=== PATIENT | female | born 1985 | race Caucasian/White ===

== ENCOUNTER 2018-07-17 18:49 | Emergency (ER) | payer MEDICAID ==
[~2018-07-17] VITALS: Ht 165.1 cm; Wt 99.4 kg
[~2018-07-17 18:49] MED LIST: ALBU8.5H5 INH; CITA20TA9 PO; HYDR12.58 PO; LEVO88TA2 PO
[2018-07-17 18:52] VITALS: BP 156/112
== END 2018-07-17 20:02 | disposition home or self-care (01) ==
LOC: ED 20:00
DX: G56.01 Carpal tunnel syndrome, right upper limb (principal); G62.9 Polyneuropathy, unspecified; I10 Essential (primary) hypertension; F32.9 Major depressive disorder, single episode, unspecified; F17.200 Nicotine dependence, unspecified, uncomplicated
CPT/HCPCS: 29260; 99284

== ENCOUNTER 2019-11-22 09:04 | Emergency (ER) | payer MEDICAID ==
[~2019-11-22] VITALS: Ht 165.1 cm; Wt 111.0 kg
[~2019-11-22 09:04] MED LIST changes: -HYDR12.58 PO; +HYDROCHLOROTH12.5 MG PO
[2019-11-22 09:18] VITALS: BP 151/108
== END 2019-11-22 10:20 | disposition home or self-care (01) ==
LOC: ED 10:06
DX: G89.11 Acute pain due to trauma (principal); M25.532 Pain in left wrist; I10 Essential (primary) hypertension; Z90.49 Acquired absence of other specified parts of digestive tract
CPT/HCPCS: 29125; 99283

== ENCOUNTER 2020-01-22 08:11 | Emergency (ER) | payer MEDICAID ==
[~2020-01-22] VITALS: Ht 165.1 cm; Wt 112.0 kg
--- NOTE | 2020-01-22 08:26 | NUR ---
PT PRESENTED TO ED D/T LEFT KNEE PAIN. PT STATES UNABLE TO AMBULATE ON LEFT LEG DUE TO KNEE PAIN.
--- NOTE | 2020-01-22 08:27 | NUR ---
MED RESIDENT AT BEDSIDE EVALUATING PT.
[2020-01-22] MEDS ORDERED: ACETAMINOPHEN 500 MG TABLET ONE (08:39)
--- NOTE | 2020-01-22 08:41 | NUR ---
MEDICATION ADMINSITERED FOR 7.5/10 LEFT KNEE PAIN. PENDING KNEE XR.
--- NOTE | 2020-01-22 08:54 | NUR ---
PT IN XR.
[2020-01-22] MEDS ORDERED: ACETAMINOPHEN 500 MG TABLET PO ONE (09:00)
[2020-01-22 09:47] VITALS: BP 133/94
--- NOTE | 2020-01-22 09:47 | NUR ---
PT RESTING COMFORTABLY ON [place] WATCHING TV. UP FOR RECHECK BY MD. NO NEEDS AT THIS TIME. RN TO CONTINUE TO MONITOR.
--- NOTE | 2020-01-22 10:21 | NUR ---
LUIS F WRAP APPLIED TO LEFT KNEE PER MD ORDERS.
--- NOTE | 2020-01-22 10:25 | NUR ---
PT DC HOME IN A STABLE CONDITION. DC INSTRUCTIONS DISCUSSED WITH PT. PT VERBALIZED UNDERSTANDING. NO FURTHER QUESTIONS OR CONCERNS EXPRESSED AT THAT TIME. PT AMBULTED TO DC DESK WITH A STEADY GAIT.
== END 2020-01-22 10:27 | disposition home or self-care (01) ==
LOC: ED 09:11
DX: M25.862 Other specified joint disorders, left knee (principal); M25.562 Pain in left knee
CPT/HCPCS: 99283

== ENCOUNTER 2020-03-04 09:24 | Day surgery (SDC) | payer MEDICAID ==
[~2020-03-04] VITALS: Ht 165.1 cm; Wt 112.0 kg
[2020-03-04 10:09] VITALS: BP 155/103
[2020-03-04 10:14] LABS: HCG UR SG 1.026 (1.003-1.030)
[2020-03-04] MEDS ORDERED: LACTATED RINGERS 1,000 ML IV SCH (10:14)
[2020-03-04] MEDS ORDERED: CHLORHEXIDINE 15 ML UDC MM ONE (10:30)
[2020-03-04] MEDS ORDERED: BUPIVACAINE/PF-EPI 0.25% 1:200K ONE (10:40)
[2020-03-04] MEDS ORDERED: morphine SULFATE/PF 1 MG/ML, 10ML ONE (10:41)
[2020-03-04] MEDS ORDERED: EPINEPHRINE 1 MG/ML, 1ML ONE (10:41)
[2020-03-04] MEDS ORDERED: LIDOCAINE 1%, 20ML ONE (10:41)
[2020-03-04] MEDS ORDERED: PROPOFOL 10 MG/ML, 20ML ONE ×2 (10:55→11:55)
[2020-03-04] MEDS ORDERED: ROCURONIUM 10MG/ML,5ML ONE (10:56)
[2020-03-04] MEDS ORDERED: SUCCINYLCHOLINE 20 MG/ML, 10ML ONE (10:56)
[2020-03-04] MEDS ORDERED: CEFAZOLIN 1,000 MG ONE (10:56)
[2020-03-04] MEDS ORDERED: PHENYLEPHRINE 10 MG/ML ONE (10:57)
[2020-03-04] MEDS ORDERED: MIDAZOLAM 1 MG/ML, 2ML ONE (11:11)
[2020-03-04] MEDS ORDERED: FENTANYL PF 100 MCG/2ML ONE ×4 (11:12→12:43)
[2020-03-04] MEDS ORDERED: SUGAMMADEX 200 MG/2 ML IVPush ONE ×2 (11:59)
[2020-03-04] MEDS ORDERED: OXYcodone 5 MG/5 ML ORAL.SOL UDC ONE (12:13)
[2020-03-04] MEDS ORDERED: ACETAMINOPHEN 650 MG/20.3 ML UDC ONE (12:13)
[2020-03-04] MEDS: FENTANYL PF 100 MCG/2ML IV PRN ×2 (12:15→12:25)
[2020-03-04] MEDS ORDERED: HYDROmorphone 1 MG/ML, 1ML INJ ONE (12:17)
[2020-03-04] MEDS: HYDROmorphone 1 MG/ML, 1ML INJ IVPush PRN ×2 (12:22→12:30)
[2020-03-04] MEDS ORDERED: morphine SULFATE 10 MG/ML, 1ML IVPush PRN (12:30)
[2020-03-04] MEDS ORDERED: HYDROcodone/APAP 7.5-325MG/15ML UDC PO PRN (12:30)
[2020-03-04] MEDS ORDERED: OXYcodone 5 MG/5 ML ORAL.SOL UDC PO PRN (12:30)
[2020-03-04] MEDS ORDERED: ACETAMINOPHEN 325 MG TABLET PO PRN (12:30)
[2020-03-04] MEDS ORDERED: ONDANSETRON 2MG/ML, 2ML ONE (12:31)
[2020-03-04] MEDS ORDERED: PROMETHAZINE 25 MG/ML, 1ML ONE (12:31)
[2020-03-04] MEDS ORDERED: PROMETHAZINE 25 MG/ML, 1ML IVPush PRN (13:00)
[2020-03-04] MEDS ORDERED: ONDANSETRON 2MG/ML, 2ML IVPush PRN (13:00)
== END 2020-03-04 15:20 | disposition home or self-care (01) ==
LOC: OUT 09:24
PROVIDERS: ATTEND Orthopaedic Surgery
DX: S83.252A Bucket-handle tear of lateral meniscus, current injury, left knee, initial encounter (principal); M94.262 Chondromalacia, left knee; M67.262 Synovial hypertrophy, not elsewhere classified, left lower leg; M25.462 Effusion, left knee; E66.01 Morbid (severe) obesity due to excess calories; Z68.24 Body mass index [BMI] 24.0-24.9, adult; Z79.890 Hormone replacement therapy; Z79.899 Other long term (current) drug therapy; Z88.0 Allergy status to penicillin; Z88.8 Allergy status to other drugs, medicaments and biological substances; Z91.013 Allergy to seafood; W54.1XXA Struck by dog, initial encounter; Y93.K1 Activity, walking an animal; Y92.89 Other specified places as the place of occurrence of the external cause; Y99.8 Other external cause status
CPT/HCPCS: 29881; 81025; J0171; J0330; J0690; J1170; J2250; J2274; J2370; J2550; J2704; J3010; J7120

== ENCOUNTER 2020-05-10 06:35 | Emergency (ER) | payer MEDICAID ==
[~2020-05-10] VITALS: Ht 165.1 cm; Wt 114.2 kg
[2020-05-10] MEDS ORDERED: HYDROcodone/APAP 5/325 TABLET PO ONE (07:00)
--- NOTE | 2020-05-10 07:06 | NUR ---
PT AMBULATORY TO ROOM 6 W/ C/O L KNEE PAIN. PT STATES SHE HAD SURGERY WHERE THEY TORE THE CARTILADGE AND ARE LETTING IT HEAL. PT HAD XR DONE TUESDAY THAT SHOWED EVERYTHING WAS HEALING WELL. YESTERDAY PT RAN DOWN THE STAIRS WITHOUT HER BRACE ON CHASING AFTER HER DOG AND NOW STATES SHE FEELS LIKE IT "CAME OUT A LITTLE". PT RESTING ON [facility]. NADN. CHENG.
[2020-05-10] MEDS ORDERED: HYDROcodone/APAP 5/325 TABLET ONE (07:12)
[2020-05-10 07:44] VITALS: BP 142/91
--- NOTE | 2020-05-10 07:44 | NUR ---
PT RESTING ON GURNEY. NADN. CHENG.
== END 2020-05-10 08:01 | disposition home or self-care (01) ==
LOC: ED 07:59
DX: M25.562 Pain in left knee (principal); I10 Essential (primary) hypertension
CPT/HCPCS: 99283

== ENCOUNTER 2020-06-17 16:53 | Emergency (ER) | payer MEDICAID ==
[~2020-06-17] VITALS: Ht 165.1 cm; Wt 110.0 kg
[2020-06-17 17:58] LABS: BASOPHILS % (AUTO) 0 % (0-1); EOSINOPHILS % (AUTO) 0 % (1-7); LYMPHOCYTES % (AUTO) 12 % (22-44); MEAN CORPUSCULAR HEMOGLOBIN 30.9 pg (27.0-34.8); MEAN CORPUSCULAR HGB CONC 33.7 g/dL (32.4-35.8); MEAN PLATELET VOLUME 7.2 fL (7.4-10.4); MONOCYTES % (AUTO) 6 % (2-9); NEUTROPHILS % (AUTO) 82 % (42-75); PLATELET COUNT 602 x10^3/uL (130-400); RED BLOOD COUNT 4.54 x10^6/uL (3.82-5.3); RED CELL DISTRIBUTION WIDTH 13.7 % (9.6-15.2)
[2020-06-17 18:00] LABS: MD NO
[2020-06-17 18:11] LABS: ALBUMIN 4.3 g/dL (3.4-5.0); ANION GAP 10 mmol/L (5-15); CALCIUM 9.4 mg/dL (8.5-10.1); CHLORIDE 103 mmol/L (98-107)
[2020-06-17 18:16] LABS: ALANINE AMINOTRANSFERASE 64 U/L (12-78); ALKALINE PHOSPHATASE 108 U/L (45-117); CREATININE 0.86 mg/dL (0.55-1.02); TOTAL PROTEIN 8.9 g/dL (6.4-8.2)
--- NOTE | 2020-06-17 18:45 | NUR ---
Pt to room.
--- NOTE | 2020-06-17 18:46 | NUR ---
Pt recently had procedure on left knee. Pt reports her pain in her knee has gotten worse with no relief. Her main complaint is her constipation and inability to pas stool. Pt reports she has hemorrhoids present and is bleeding. Pt reports prior to dc she had not had a bm and was dc home. Pt reports she continued to take the pain medcine reguarly at home with no stool softners on board. Pt reports no new trauma. Pt is very tearful and screams when moving. Pt connected to monitors and call light in reach.
[2020-06-17] MEDS ORDERED: LORazepam 2 MG/ML, 1ML ONE (18:59)
[2020-06-17] MEDS ORDERED: KETOROLAC 30 MG/1 ML ONE (18:59)
[2020-06-17] MEDS ORDERED: LORazepam 2 MG/ML, 1ML IVPush ONE (19:00)
[2020-06-17] MEDS ORDERED: MORPHINE SULFATE 4 MG/ML, 1ML IVPush PRN (19:00)
[2020-06-17] MEDS ORDERED: ONDANSETRON 2MG/ML, 2ML IVPush ONE (19:00)
[2020-06-17] MEDS ORDERED: SODIUM CHLORIDE FLUSH 10ML SYR IVF ONE (19:00)
[2020-06-17] MEDS ORDERED: SODIUM CHLORIDE 0.9% 1,000ML IVBOLUS ONE (19:00)
[2020-06-17] MEDS ORDERED: KETOROLAC 30 MG/1 ML IVPush ONE (19:00)
[2020-06-17] MEDS ORDERED: ASPI-650 PO (19:36)
[2020-06-17] MEDS ORDERED: OXYC5CAP2 PO (19:36)
[2020-06-17] MEDS ORDERED: CEPH-368 PO (19:36)
--- NOTE | 2020-06-17 19:36 | NUR ---
BREAK RN: STRAIGHT CATH UA COLLETED PER ORDER; PT. TOLERATED WELL. IV ESTABLIHSED; IVF INFUSING; MEDICATED PER MAR. DENIES NAUSEA AT THIS TIME. KNEE BRACE AND LUIS F WRAP REMOVED PER ORDER. CONTINUOUS PULSE OX AND B/P MONIORS PLACED. ALL SAFETY MEASURES OBSERVED.
--- NOTE | 2020-06-17 19:43 | NUR ---
BREAK RN: PT. TO CT [facility]IA [employer] AT THIS TIME. REPORT BACK TO [facility] TO RE-ASSUME CARE.
[2020-06-17] MEDS ORDERED: OMNIPAQUE 350 MG/ML, 150 ML BOTTLE ONE (19:58)
[2020-06-17 20:21] LABS: MICROSCOPIC INDICATED
[2020-06-17 20:28] LABS: HCG UR SG 1.028 (1.003-1.030)
[2020-06-17] MEDS ORDERED: PROPOFOL 10 MG/ML, 20ML IVPush ONE (21:00)
[2020-06-17] MEDS ORDERED: PROPOFOL 10 MG/ML, 20ML ONE (21:03)
--- NOTE | 2020-06-17 22:32 | NUR ---
Pt recovere, pt still woozy from medications but is clearly speaking. Pt reporting her knee hurts. Pt informed that cannot give pain medication for her knee at this time.
[2020-06-17] MEDS ORDERED: METHYLNALTREXONE 12 MG/0.6 ML SYR SQ ONE ×2 (22:35→23:00)
[2020-06-17] MEDS ORDERED: MORPHINE SULFATE 4 MG/ML, 1ML ONE (22:35)
--- NOTE | 2020-06-17 22:58 | NUR ---
Please see procedural sedation paperwork for vitals and procedure.
--- NOTE | 2020-06-17 23:30 | NUR ---
Patient/Caregiver given discharge instructions and they have confirmed that they understand the instructions. Patient ambulatory with steady gait.
== END 2020-06-17 23:37 | disposition home or self-care (01) ==
LOC: ED 21:27
DX: K62.89 Other specified diseases of anus and rectum (principal); K56.41 Fecal impaction; D72.829 Elevated white blood cell count, unspecified; R00.0 Tachycardia, unspecified; I10 Essential (primary) hypertension; F17.200 Nicotine dependence, unspecified, uncomplicated; Z90.49 Acquired absence of other specified parts of digestive tract
CPT/HCPCS: 36415; 74021; 74177; 80053; 81001; 81025; 83690; 84703; 85025; 87086; 96372; 96374; 96375; 99152; 99285; J1885; J2060; J2270; J7030; Q9967